=== PATIENT | female | born 1965 | race Two or more races ===

== ENCOUNTER 2024-11-04 18:58 | Emergency (ER) | payer MEDICAID, SELFPAY ==
[2024-11-04 19:00] VITALS: BMI 37.4
[2024-11-04 19:13] VITALS: BP 134/85; PULSE 73; RESP 20; TEMP 37; O2SAT 97
--- NOTE | 2024-11-04 19:20 | XR_ITS ---
Examination: Foot, right, 3 views Technique: AP, oblique, lateral views foot, 3 views Date and time of exam: November 04, 20245 hrs. Indications: Injury to the foot 7 days ago, foot pain. Findings: Moderate osteopenia Deformity of the distal fibula Soft tissue swelling about the ankle Impression: Recommend follow-up ankle films to exclude fracture of the distal fibula
--- NOTE | 2024-11-04 19:22 | PD.EDRME ---
Rapid Medical Screening Exam [facility] Arrival date/time: 11/04/24 18:58 59-year-old female with no known medical history presents to the emergency room with a chief complaint of pain and tenderness to her right toe x 7 days. Patient states she stubbed her toe and since then her toe has began to get more infected and discolored. Patient states she struggles with her blood sugar management and today it was at 180 this morning. I have greeted and performed a focused initial assessment of this patient. A comprehensive ED assessment and evaluation of the patient, analysis of all test results, and completion of the medical decision making process will be conducted by additional ED providers. Chief Complaint: General Adult/Misc Complain Time Seen by Provider: 11/04/24 19:20 Vital signs: Vital Signs Temperature 98.6 F 11/04/24 19:13 Pulse Rate 73 11/04/24 19:13 Respiratory Rate 20 11/04/24 19:13 Blood Pressure 134/85 H 11/04/24 19:13 Pulse Oximetry (%) 97 11/04/24 19:13 Oxygen Delivery Method Room Air 11/04/24 19:13 Vital signs reviewed by provider: Yes
[2024-11-04 19:52] LABS: Basophils # (Auto) 0.1 Thou/mm3 (0.0-0.2); Basophils % (Auto) 1 % (0-2.5); Eosinophils # (Auto) 0.4 Thou/mm3 (0.0-0.5); Eosinophils % (Auto) 4 % (0-10); Hematocrit 45.7 % (36.0-46.0); Hemoglobin 15.4 g/dL (12.0-16.0); Immature Granulocytes % (Auto) 1 % (0-0); Immature Granulocytes Auto 0.05 Thou/mm3 (0.00-0.00); Lymphocytes # (Auto) 3.3 Thou/mm3 (1.0-4.8); Lymphocytes % (Auto) 36 % (10-50); Mean Corpuscular HGB Conc 33.7 g/dl (31.0-37.0); Mean Corpuscular Hemoglobin 29.1 pg (25.0-35.0); Mean Corpuscular Volume 86 fL (80-100); Monocytes # (Auto) 0.8 Thou/mm3 (0.0-0.8); Monocytes % (Auto) 8 % (0-12); Neutrophils # (Auto) 4.6 Thou/mm3 (1.8-7.7); Neutrophils % (Auto) 50 % (37-80); Nucleated Red Blood Cell % 0 /100 WBC (0); Platelet Count 215 Thou/mm3 (140-440); RDW Standard Deviation 44.2 fL (36.4-46.3); Red Blood Count 5.29 Miln/mm3 (4.00-5.20); White Blood Count 9.2 Thou/mm3 (3.6-11.0)
[2024-11-04 20:18] LABS: Sed Rate (ESR) 44 mm/hr (0-30)
[2024-11-04 21:03] LABS: Alanine Aminotransferase 33 U/L (10-49); Albumin, Serum 4.2 gm/dL (3.4-4.8); Albumin/Globulin Ratio 1.1 (1.2-2.2); Alkaline Phosphatase 166 U/L (46-116); Anion Gap 8 (7-16); Aspartate Amino Transferase 29 U/L (0-34); BUN/Creatinine Ratio 12 Ratio (12-20); Bilirubin,Total 0.4 mg/dL (0.3-1.2); Blood Urea Nitrogen 13 mg/dL (9-23); Calcium 9.6 mg/dL (8.3-10.6); Calcium (Corrected) 9.6 mg/dL (8.5-10.1); Carbon Dioxide 27.9 mMol/L (20.0-31.0); Chloride 102 mMol/L (98-107); Creatinine (Component) 1.1 mg/dL (0.6-1.3); Estimated Creatinine Clearance 64.4 mL/min (>60); Glucose 228 mg/dL (74-106); Osmolality,Calculated 282 (275-295); Potassium 4.2 mMol/L (3.4-5.1); Sodium 138 mMol/L (136-145); Total Protein 8.2 gm/dL (5.7-8.2); eGFR 58 See Note
[2024-11-04 21:46] LABS: C-Reactive Protein 0.5 mg/dL (0.0-0.9)
--- NOTE | 2024-11-04 22:45 | EDNOTE_ITS ---
ED General RME/HPI General Chief complaint: General Adult/Misc Complain Stated complaint: HIGH BLOOD SUGAR/INJURY RIGHT TOE x 7 DAYS Time Seen by Provider: 11/04/24 19:20 Arrival date/time: 11/04/24 18:58 RME / HPI RME / HPI narrative: 59-year-old female patient with significant history of diabetes mellitus, came in for evaluation regarding right 4th toe injury. Onset of symptoms for the last 7 days, according to the patient patient right 4th toe injury with a bed. It was okay until few days ago when the patient noted discoloration, described as erythematous, and mildly swollen. Denies any drainage. Denies any other complaints. She also complained of blood sugar problem, this morning it was 180. Patient denies any fever. Denies any other complaints patient is ambulatory not limping. Related Data Home Medications ?Medication ?Instructions ?Recorded ?Confirmed chlorpheniramine maleate 4 mg 4 mg PO Q6H PRN Allergy Symptoms 04/19/19 12/18/22 tablet (Chlor-Trimeton) empagliflozin 25 mg tablet 25 mg PO QDAY 04/19/19 12/18/22 (Jardiance) levothyroxine 75 mcg tablet 75 mcg PO QAMAC 04/19/19 12/18/22 loratadine 10 mg tablet 20 mg PO QDAY 04/19/19 12/18/22 sitagliptin phosphate 50 1 tab PO BID 04/19/19 12/18/22 mg-metformin 1,000 mg tablet (Janumet) aspirin 81 mg chewable tablet 81 mg PO QDAY 12/18/22 12/18/22 pravastatin 10 mg tablet 10 mg PO QDAY 12/18/22 12/18/22 Previous Rx's ?Medication ?Instructions ?Recorded ibuprofen 800 mg tablet 600 mg (0.75 x 800 mg) PO TID #30 04/21/19 tabs acetaminophen 500 mg capsule 1,000 mg (2 x 500 mg) PO TID #30 04/29/24 caps sulfamethoxazole 800 1 tab PO BID #14 tabs 11/04/24 mg-trimethoprim 160 mg tablet (Bactrim DS) Allergies Allergy/AdvReac Type Severity Reaction Status Date / Time No Known Allergies Allergy Verified 11/04/24 19:03 Review of Systems Review of Systems Narrative Review of Systems: Review of system reviewed and within normal limits except mentioned in HPI ED Exam Narrative Physical exam: VITAL SIGNS: Reviewed. GENERAL APPEARANCE: Alert and interactive, follows commands, no acute distress, HEAD AND FACE: Non-traumatic. ENT: PERRL, pink conjunctivitis, eyelid no trauma, Mucous membrane moist. NECK: Supple, nontender, no nuchal rigidity. CHEST: No tenderness, no crepitus, no paradoxical movement, no retractions. LUNGS: Clear, well ventilated, symmetric, no rales, no wheezing, no ronchi, no stridor, good breath sounds bilaterally. HEART: Regular rate, regular rhythm, no murmur, no gallops. ABDOMEN: Soft, positive bowel sounds, nondistended, no guarding, nontender, no rebound, no masses, RECTAL: Deferred. GENITAL: Deferred. NEUROLOGICAL: Gross motor function intact sensory function intact, Appropriate for age. MUSCULOSKELETAL: low back nontender, full range of motion. EXTREMITIES: Right 4th toe redness, swelling, erythematous no drainage noted nonfluctuant, full range of motion. SKIN: Color pink, dry, no rash, no lacerations, no abrasions, no contusions. LYMPHATICS: Deferred. Course Quality Measures none Orders Category Date Time Status XR foot comp RT min 3V Stat Exams 11/04/24 19:45 Completed CBC Stat Lab 11/04/24 19:28 Completed CMP [Comprehensive Metabolic Panel] Stat Lab 11/04/24 19:28 Completed CRP [C-Reactive Protein] Stat Lab 11/04/24 19:28 Completed ESR [Sed Rate (ESR)] Stat Lab 11/04/24 19:28 Completed Trimethoprim/Sulfa 160/800 Ds [Bactrim Ds] Med 11/04/24 22:43 Discontinued 1 tab PO X1 ONE Vital Signs Vital signs: Vital Signs Temperature 98.6 F 11/04/24 19:13 Pulse Rate 73 11/04/24 19:13 Respiratory Rate 20 11/04/24 19:13 Blood Pressure 134/85 H 11/04/24 19:13 Pulse Oximetry (%) 97 11/04/24 19:13 Oxygen Delivery Method Room Air 11/04/24 19:13 [facility] Patient data External records reviewed:: None Clinical information provided by:: patient Social determinants that could affect healthcare access:: none Patient has the following chronic illnesses:: Diabetes mellitus How is presenting disease/condition affected by chronic disease/condition?: e xacerbated by Evaluation data The following diagnostics were reviewed and interpreted by me:: lab results and radiology exam(s) Lab and/or radiology exams considered but not ordered:: None Interpretation Summary: Patient's workup today all came back unremarkable, no leukocytosis, blood sugar was noted to be 228, with no sign of diabetic ketoacidosis. X-ray of the foot also came back unremarkable. Medications Medications considered but not ordered:: None Medication administrations:: Medication Administration History Discontinued Medications Trimethoprim/Sulfamethoxazole (Trimethoprim/Sulfa 160/800 Ds Tablet) 1 tab PO X1 ONE Stop: 11/04/24 22:44 Bactrim Consultations Consultation(s) initiated? (list below): No Diagnosis Differential Diagnosis ED Complaint MDM: Toe cellulitis, diabetic toe infection, diabetic toe gangrene Most likely diagnosis given after review of the tests above:: toe cellulitis History of diabetes mellitus Admission Indicated Admission indicated?: not indicated Explain why admission is indicated or not indicated:: Stable Admission Request Was there a request for admission?: No Disposition Plan Disposition Plan: Discharge Discharge Attestation Discharge Attestation: The patient and all family members were given an opportunity to ask questions and understood the discharge instructions. Discharge instructions specifically effects, indications for sooner follow up or return to the emergency department, and the expected course of current diagnosis. Patient condition: Stable Medical Decision Making MDM Narrative MDM Narrative: 59-year-old female patient with significant history of diabetes mellitus, came in for evaluation regarding right 4th toe injury. Onset of symptoms for the last 7 days, according to the patient patient right 4th toe injury with a bed. It was okay until few days ago when the patient noted discoloration, described as erythematous, and mildly swollen. Denies any drainage. Denies any other complaints. She also complained of blood sugar problem, this morning it was 180. Patient denies any fever. Denies any other complaints patient is ambulatory not limping. Patient's workup today all came back unremarkable, no leukocytosis, blood sugar was noted to be 228, with no sign of diabetic ketoacidosis. X-ray of the foot also came back unremarkable. Patient received Bactrim in the emergency room. Differential Diagnosis Differential Diagnosis: Toe cellulitis, diabetic toe infection, diabetic toe gangrene Lab Data 11/04/24 19:28 11/04/24 19:28 Labs: Lab Results 11/04/24 Range/Units 19:28 WBC 9.2 (3.6-11.0) Thou/mm3 RBC 5.29 H (4.00-5.20) Miln/mm3 Hgb 15.4 (12.0-16.0) g/dL Hct 45.7 (36.0-46.0) % MCV 86 (80-100) fL MCH 29.1 (25.0-35.0) pg MCHC 33.7 (31.0-37.0) g/dl RDW Std Deviation 44.2 (36.4-46.3) fL Plt Count 215 (140-440) Thou/mm3 Neut % (Auto) 50 (37-80) % Lymph % (Auto) 36 (10-50) % [place] % (Auto) 8 (0-12) % Eos % (Auto) 4 (0-10) % Baso % (Auto) 1 (0-2.5) % Neut # (Auto) 4.6 (1.8-7.7) Thou/mm3 Lymph # (Auto) 3.3 (1.0-4.8) Thou/mm3 [place] # (Auto) 0.8 (0.0-0.8) Thou/mm3 Eos # (Auto) 0.4 (0.0-0.5) Thou/mm3 Baso # (Auto) 0.1 (0.0-0.2) Thou/mm3 Immature Gran # (Auto) 0.05 H (0.00-0.00) Thou/mm3 Absolute Nucleated RBC 0.00 (0.00-0.00) Thou/mm3 Immature Gran % 1 H (0-0) % Nucleated RBC % 0 (0) /100 WBC ESR 44 H (0-30) mm/hr Sodium 138 (136-145) mMol/L Potassium 4.2 (3.4-5.1) mMol/L Chloride 102 (98-107) mMol/L Carbon Dioxide 27.9 (20.0-31.0) mMol/L Anion Gap 8 (7-16) BUN 13 (9-23) mg/dL Creatinine 1.1 (0.6-1.3) mg/dL Estim Creat Clear Calc 64.4 (>60) mL/min eGFR 58 L (60 - ) See Note BUN/Creatinine Ratio 12 (12-20) Ratio Glucose 228 H (74-106) mg/dL Calculated Osmolality 282 (275-295) Calcium 9.6 (8.3-10.6) mg/dL Corrected Calcium 9.6 (8.5-10.1) mg/dL Total Bilirubin 0.4 (0.3-1.2) mg/dL AST 29 (0-34) U/L ALT 33 (10-49) U/L Alkaline Phosphatase 166 H (46-116) U/L C-Reactive Prot, Quant 0.5 (0.0-0.9) mg/dL Total Protein 8.2 (5.7-8.2) gm/dL Albumin 4.2 (3.4-4.8) gm/dL Globulin 4.0 H (2.3-3.5) gm/dL Albumin/Globulin Ratio 1.1 L (1.2-2.2) Discharge Plan Plan Patient Disposition: HOME (Self Care) Disposition Comment: Stable Prescriptions/Referrals Prescriptions/Med Rec: New sulfamethoxazole-trimethoprim [Bactrim DS] 800-160 mg tablet 1 tab PO BID Qty: 14 0RF No Action chlorpheniramine maleate [Chlor-Trimeton] 4 mg Tablet 4 mg PO Q6H PRN (Reason: Allergy Symptoms) levothyroxine 75 mcg Tablet 75 mcg PO QAMAC loratadine 10 mg Tablet 20 mg PO QDAY Janumet 50-1,000 mg Tablet 1 tab PO BID Jardiance 25 mg Tablet 25 mg PO QDAY ibuprofen 800 mg tablet 600 mg PO TID Qty: 30 0RF pravastatin 10 mg tablet 10 mg PO QDAY aspirin 81 mg tablet,chewable 81 mg PO QDAY acetaminophen 500 mg capsule 1,000 mg PO TID Qty: 30 0RF Referrals: Rylan Sierra PA-C [Primary Care Provider] - In 1 week Problem List Clinical Impression: Cellulitis of fourth toe, Diabetes mellitus Patient/Caregiver Discharge Instructions Discharge Activity: activity as tolerated Education Materials: ED Diabetic Foot Care, ED Diet: Diabetes Additional Instructions: Thank you for the opportunity for serving you today. You are stable for discharged . You are advised to: Follow-up with your PCP in 1 to 2 days Return to ED for worsening of symptoms Increase oral fluids Take medication as prescribed MD Stephanie Print Language: Swedish Stand Alone Forms: Mariana Award Info., Patient Portal Info Letter PA/MANAGER OF ENTERPRISE Supervising Physician PA/MANAGER OF ENTERPRISE Supervising Physician: MD Stephanie
[2024-11-04] MEDS: TRIMETHOPRIM/SULFA 160/800 DS TABLET 1 TAB PO (23:00)
== END 2024-11-04 23:03 | disposition home or self-care (01) ==
PROVIDERS: Nurse Practitioner Family; Emergency Provider Emergency Medicine; PCP Physician Assistant
DX: L03.031 Cellulitis of right toe (principal); E11.9 Type 2 diabetes mellitus without complications
CPT/HCPCS: 36415; 73630; 80053; 85025; 85652; 86140; 99283; A9270

== ENCOUNTER 2025-01-13 00:22 | Emergency (ER) | payer MEDICAID, SELFPAY ==
[2025-01-13 00:23] VITALS: BMI 38.4
[2025-01-13 00:45] VITALS: BP 133/87; PULSE 89; RESP 18; TEMP 37.5; O2SAT 95
--- NOTE | 2025-01-13 01:18 | XR_ITS ---
Examination: PA and lateral chest 2 views TECHNIQUE: Upright PA and lateral chest 2 views Examination time: January 13, 2025 at 0128 hours Comparison July 24, 2021 INDICATIONS: Chest pain today FINDINGS: Minor prominence left ventricle Moderate vascular congestion No lobar pneumonia The osseous structures are intact IMPRESSION: Moderate vascular congestion
--- NOTE | 2025-01-13 01:18 | EKG_ITS ---
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
--- NOTE | 2025-01-13 01:19 | EDRME_ITS ---
Rapid Medical Screening Exam [facility] Arrival date/time: 01/13/25 00:22 59F with history of DM and hypothyroidism presents to ED with 4 days of fevers/chills, reduced appetite, and N/V. Patient denies URI symptoms. Chief Complaint: Fever Vital signs: Vital Signs Temperature 99.5 F 01/13/25 00:45 Pulse Rate 89 01/13/25 00:45 Respiratory Rate 18 01/13/25 00:45 Blood Pressure 133/87 H 01/13/25 00:45 Pulse Oximetry (%) 95 01/13/25 00:45 Oxygen Delivery Method Room Air 01/13/25 00:45
[2025-01-13 02:06] LABS: Collection Type, Urine Clean Catch
[2025-01-13 02:08] LABS: Lactate (Lactic Acid) 1.1 mMol/L (0.4-2.0)
[2025-01-13 02:11] LABS: Basophils # (Auto) 0.1 Thou/mm3 (0.0-0.2); Basophils % (Auto) 1 % (0-2.5); Eosinophils # (Auto) 0.3 Thou/mm3 (0.0-0.5); Eosinophils % (Auto) 2 % (0-10); Hemoglobin 15.4 g/dL (12.0-16.0); Immature Granulocytes % (Auto) 0 % (0-0); Immature Granulocytes Auto 0.05 Thou/mm3 (0.00-0.00); Lymphocytes # (Auto) 2.4 Thou/mm3 (1.0-4.8); Lymphocytes % (Auto) 17 % (10-50); Mean Corpuscular HGB Conc 34.2 g/dl (31.0-37.0); Mean Corpuscular Volume 88 fL (80-100); Monocytes # (Auto) 1.3 Thou/mm3 (0.0-0.8); Monocytes % (Auto) 9 % (0-12); Neutrophils # (Auto) 9.7 Thou/mm3 (1.8-7.7); Neutrophils % (Auto) 70 % (37-80); Nucleated Red Blood Cell % 0 /100 WBC (0); Platelet Count 186 Thou/mm3 (140-440); RDW Standard Deviation 43.9 fL (36.4-46.3); Red Blood Count 5.13 Miln/mm3 (4.00-5.20); White Blood Count 13.8 Thou/mm3 (3.6-11.0)
[2025-01-13 02:16] LABS: Bilirubin,Urine Negative (Negative); Blood,Urine Negative (Negative); Clarity,Urine Turbid (Clear/Hazy); Color,Urine Yellow (Lt Yel-Yel); Culture Indicated,Urine Not Indicated; Glucose, Urine Trace (Negative); Ketones,Urine Trace (Negative); Leukocyte Esterase,Urine Positive (Negative); Nitrite,Urine Negative (Negative); Protein,Urine 1+ (Neg - Trace); RBC,Urine 2 /hpf (0-3); Specific Gravity,Urine 1.041 (1.001-1.035); Squamous Epithelial Cell,Urine 19 /hpf (0-5); WBC,Urine 4 /hpf (0-5)
--- NOTE | 2025-01-13 02:25 | PD.EDFEVER ---
ED Fever RME/HPI General Chief Complaint: Fever Stated Complaint: FEVER Arrival date/time: 01/13/25 00:22 RME / HPI RME / HPI Narrative: 01/13/25 00:22 59F with history of DM and hypothyroidism presents to ED with 4 days of fevers/chills, reduced appetite, and N/V. Patient denies URI symptoms. --------- Dr. Meza's Main ED Evaluation: Related Data Home Medications ?Medication ?Instructions ?Recorded ?Confirmed chlorpheniramine maleate 4 mg 4 mg PO Q6H PRN Allergy Symptoms 04/19/19 12/18/22 tablet (Chlor-Trimeton) empagliflozin 25 mg tablet 25 mg PO QDAY 04/19/19 12/18/22 (Jardiance) levothyroxine 75 mcg tablet 75 mcg PO QAMAC 04/19/19 12/18/22 loratadine 10 mg tablet 20 mg PO QDAY 04/19/19 12/18/22 sitagliptin phosphate 50 1 tab PO BID 04/19/19 12/18/22 mg-metformin 1,000 mg tablet (Janumet) aspirin 81 mg chewable tablet 81 mg PO QDAY 12/18/22 12/18/22 pravastatin 10 mg tablet 10 mg PO QDAY 12/18/22 12/18/22 Previous Rx's ?Medication ?Instructions ?Recorded ibuprofen 800 mg tablet 600 mg (0.75 x 800 mg) PO TID #30 04/21/19 tabs acetaminophen 500 mg capsule 1,000 mg (2 x 500 mg) PO TID #30 04/29/24 caps sulfamethoxazole 800 1 tab PO BID #14 tabs 11/04/24 mg-trimethoprim 160 mg tablet (Bactrim DS) Allergies Allergy/AdvReac Type Severity Reaction Status Date / Time No Known Allergies Allergy Verified 11/04/24 19:03 Review of Systems Review of Systems Systems Reviewed: All systems reviewed, normal except as documented Past Medical History Past Medical History NEUROLOGIC: Negative Neurological Disorders or Seizures CARDIAC: Positive Cardiac Disorders and Hypercholesterolemia; Negative Congestive Heart Failure RESPIRATORY: Negative Chronic Obstructive Pulmonary Disease (COPD) or Asthma GASTROINTESTINAL: Positive Gastrointestinal Disorders and Gall Bladder Disease GENITOURINARY: Negative Genitourinary Disorders or Renal Disease REPRODUCTIVE: Positive Previous Pregnancies MUSCULOSKELETAL: Negative Musculoskeletal Disorders ENDOCRINE: Positive Endocrine Disorders, Diabetes Mellitus Type 2 and Hyperthyroidism; Negative Diabetes Mellitus Type 1 HEMATOLOGIC: Negative Blood Disorders or Sickle Cell Disease PSYCHO/SOCIAL: Positive Anxiety OTHER HISTORY: Negative Autoimmune Disease, Blood Transfusions, Blood Transfusion Reaction or Anesthesia Reactions Surgical History SURGICAL: Positive Tubal Ligation and Section Social History SMOKING STATUS: Never smoker Course Course Course Narrative: CXR is ordered for determining the etiology of fever. Quality Measures none Orders Category Date Time Status Bedside COVID-19 Antigen Test NOW Care 01/13/25 01:19 Active Bedside Influenza A&B Antigen Test NOW Care 01/13/25 01:19 Completed EKG (ED ONLY) *Do not use* NOW Care 01/13/25 01:18 Completed EKG (ED Only) Stat Exams 01/13/25 01:18 Draft XR chest 2V Stat Exams 01/13/25 01:18 Taken CBC Stat Lab 01/13/25 01:46 Received Comprehensive Metabolic Panel Stat Lab 01/13/25 01:46 Received Lactate (Lactic Acid) Stat Lab 01/13/25 01:46 Completed Lipase Stat Lab 01/13/25 01:46 Received Procalcitonin Stat Lab 01/13/25 01:46 Received Troponin I Stat Lab 01/13/25 01:46 Received Urinalysis, C/S if Indicated Stat Lab 01/13/25 01:46 Received Vital Signs Vital signs: Vital Signs Temperature 99.5 F 01/13/25 00:45 Pulse Rate 89 01/13/25 00:45 Respiratory Rate 18 01/13/25 00:45 Blood Pressure 133/87 H 01/13/25 00:45 Pulse Oximetry (%) 95 01/13/25 00:45 Oxygen Delivery Method Room Air 01/13/25 00:45 Fever Patient data External records reviewed:: [facility] previous records (Per chart review, patient was seen here on 11/04/24 for cellulitis of the fourth toe.) Clinical information provided by:: patient and family Social determinants that could affect healthcare access:: none Patient has the following chronic illnesses:: DM, HLD Discharge Plan Prescriptions/Referrals Prescriptions/Med Rec: No Action chlorpheniramine maleate [Chlor-Trimeton] 4 mg Tablet 4 mg PO Q6H PRN (Reason: Allergy Symptoms) levothyroxine 75 mcg Tablet 75 mcg PO QAMAC loratadine 10 mg Tablet 20 mg PO QDAY Janumet 50-1,000 mg Tablet 1 tab PO BID Jardiance 25 mg Tablet 25 mg PO QDAY ibuprofen 800 mg tablet 600 mg PO TID Qty: 30 0RF sulfamethoxazole-trimethoprim [Bactrim DS] 800-160 mg tablet 1 tab PO BID Qty: 14 0RF pravastatin 10 mg tablet 10 mg PO QDAY aspirin 81 mg tablet,chewable 81 mg PO QDAY acetaminophen 500 mg capsule 1,000 mg PO TID Qty: 30 0RF Patient/Caregiver Discharge Instructions Print Language: Telugu
[2025-01-13 02:39] LABS: Alanine Aminotransferase 27 U/L (10-49); Albumin, Serum 4.1 gm/dL (3.4-4.8); Alkaline Phosphatase 134 U/L (46-116); Anion Gap 8 (7-16); Aspartate Amino Transferase 24 U/L (0-34); BUN/Creatinine Ratio 14 Ratio (12-20); Bilirubin,Total 0.6 mg/dL (0.3-1.2); Blood Urea Nitrogen 14 mg/dL (9-23); Calcium 9.8 mg/dL (8.3-10.6); Calcium (Corrected) 9.8 mg/dL (8.5-10.1); Chloride 102 mMol/L (98-107); Estimated Creatinine Clearance 69.4 mL/min (>60); Glucose 171 mg/dL (74-106); Lipase 28 U/L (12-53); Osmolality,Calculated 280 (275-295); Potassium 3.8 mMol/L (3.4-5.1); Procalcitonin 0.09 ng/ml (0.0-0.49); Sodium 138 mMol/L (136-145); Total Protein 8.1 gm/dL (5.7-8.2); Troponin I < 0.002 ng/mL (0.0-0.045); eGFR > 60 See Note
[2025-01-13 03:40] VITALS: BP 121/61; PULSE 74; RESP 18; O2SAT 95
[2025-01-13] MEDS: SODIUM CHLORIDE 0.9% 1000 ML 1,000 ML 999 ML IV (05:24)
--- NOTE | 2025-01-13 08:38 | PD.EDFEVER ---
ED Fever RME/HPI General Chief Complaint: Fever Stated Complaint: FEVER Time Seen by Provider: 01/13/25 03:37 Arrival date/time: 01/13/25 00:22 RME / HPI RME / HPI Narrative: 01/13/25 00:22 59F with history of DM and hypothyroidism presents to ED with 4 days of fevers/chills, reduced appetite, and N/V. Patient denies URI symptoms. --------- DR. QUIJANO MAIN ED EVALUATION 59 year old female with history of diabetes and hypothyroidism presents to the ED for complaint of fevers, chills, nausea, and cough beginning 3 days ago. Patient additionally reports her blood sugar levels yesterday were high, the highest reading 426. However, improved after administering her insulin. Denies any known sick contacts. No other complaints reported. Denies chest pain, shortness of breath. Denies vomiting, diarrhea, constipation. Denies dysuria, urinary frequency and urgency. Related Data Home Medications ?Medication ?Instructions ?Recorded ?Confirmed chlorpheniramine maleate 4 mg 4 mg PO Q6H PRN Allergy Symptoms 04/19/19 12/18/22 tablet (Chlor-Trimeton) empagliflozin 25 mg tablet 25 mg PO QDAY 04/19/19 12/18/22 (Jardiance) levothyroxine 75 mcg tablet 75 mcg PO QAMAC 04/19/19 12/18/22 loratadine 10 mg tablet 20 mg PO QDAY 04/19/19 12/18/22 sitagliptin phosphate 50 1 tab PO BID 04/19/19 12/18/22 mg-metformin 1,000 mg tablet (Janumet) aspirin 81 mg chewable tablet 81 mg PO QDAY 12/18/22 12/18/22 pravastatin 10 mg tablet 10 mg PO QDAY 12/18/22 12/18/22 Previous Rx's ?Medication ?Instructions ?Recorded ibuprofen 800 mg tablet 600 mg (0.75 x 800 mg) PO TID #30 04/21/19 tabs acetaminophen 500 mg capsule 1,000 mg (2 x 500 mg) PO TID #30 04/29/24 caps sulfamethoxazole 800 1 tab PO BID #14 tabs 11/04/24 mg-trimethoprim 160 mg tablet (Bactrim DS) Allergies Allergy/AdvReac Type Severity Reaction Status Date / Time No Known Allergies Allergy Verified 11/04/24 19:03 Review of Systems Review of Systems Narrative Review of Systems: GEN: + fever, + chills, no weight loss EYES: No discharge, no visual changes, no pain HEENT: No ear pain, no congestion, no sore throat PULM: No shortness of breath, +cough, no congestion CV: No chest pain, no dyspnea on exertion, no palpitations GI: +nausea, no vomiting, no diarrhea, no pain, no constipation : No frequency, no urgency, no dysuria MUSC/SKEL: No joint pain, no back pain SKIN: No rash NEURO: No weakness, no headache Past Medical History Past Medical History CARDIAC: Positive Cardiac Disorders and Hypercholesterolemia GASTROINTESTINAL: Positive Gastrointestinal Disorders and Gall Bladder Disease REPRODUCTIVE: Positive Previous Pregnancies ENDOCRINE: Positive Endocrine Disorders, Diabetes Mellitus Type 2 and Hyperthyroidism PSYCHO/SOCIAL: Positive Anxiety Surgical History SURGICAL: Positive Tubal Ligation and Section Social History SMOKING STATUS: Former smoker Physical Exam Narrative Physical exam: GENERAL APPEARANCE: alert and oriented x 4, well-developed, well-nourished, no acute distress HEENT: Normocephalic, atraumatic; pupils equal, round, reactive to light; EOMI; mucous membranes pink, moist; oropharynx clear NECK: Supple LUNGS: CTABL; no wheezes, no rales, no rhonchi HEART: Regular rate, regular rhythm; normal S1, S2; no murmurs ABDOMEN: non distended; normal BS; soft, no tenderness, no guarding, no rebound; no masses, no organomegaly, no hernia BACK: no CVA tenderness EXTREMITIES: atraumatic; no edema NEUROLOGIC: awake; alert and oriented x4; cranial nerves II-XII grossly intact; no focal sensory or motor deficits PSYCHIATRIC: appropriate mood and affect SKIN: warm, dry, normal color; no rashes Course Course Course Narrative: CXR is ordered for determining the etiology of fever. Quality Measures none Orders Category Date Time Status Bedside COVID-19 Antigen Test NOW Care 01/13/25 01:19 Active Bedside Influenza A&B Antigen Test NOW Care 01/13/25 01:19 Completed EKG (ED ONLY) *Do not use* NOW Care 01/13/25 01:18 Completed EKG (ED Only) Stat Exams 01/13/25 01:18 Draft XR chest 2V Stat Exams 01/13/25 01:18 Completed CBC Stat Lab 03/28/25 01:46 Completed Comprehensive Metabolic Panel Stat Lab 01/13/25 01:46 Completed Lactate (Lactic Acid) Stat Lab 01/13/25 01:46 Completed Lipase Stat Lab 01/13/25 01:46 Completed Procalcitonin Stat Lab 01/13/25 01:46 Completed Troponin I Stat Lab 01/13/25 01:46 Completed Urinalysis, C/S if Indicated Stat Lab 01/13/25 01:46 Completed Sodium Chloride 0.9% 1000 ml [Ns] 1,000 ml Med 01/13/25 04:41 Discontinued IV 999 mls/hr Reevaluation(s) Reevaluation #1: Patient remains clinically stable throughout the emergency department visit. We reviewed all the results, analysis, and treatment plans. Patient is amenable to discharge. Strict return precautions were outlined. Patient was discharged in stable condition. Time: 08:45 Vital Signs Vital signs: Vital Signs Temperature 99.5 F 01/13/25 00:45 Pulse Rate 89 01/13/25 00:45 Respiratory Rate 18 01/13/25 00:45 Blood Pressure 133/87 H 01/13/25 00:45 Pulse Oximetry (%) 95 01/13/25 00:45 Oxygen Delivery Method Room Air 01/13/25 00:45 Pulse ox is 95% on room air which is adequate. Fever MDM Narrative MDM Narrative:: Kristin Calix am scribing for and in the presence of Dr. Quijano. Patient data External records reviewed:: [facility] previous records (I reviewed ED visit on 11/04/2024 ) Clinical information provided by:: patient Social determinants that could affect healthcare access:: none Patient has the following chronic illnesses:: DM, hypothyroidism How is presenting disease/condition affected by chronic disease/condition?: exacerbated by Evaluation data The following diagnostics were reviewed and interpreted by me:: lab results, radiology exam(s) and EKG tracing(s) (Sinus rhythm, rate 85, no acute ischemic changes, no STEMI ) Lab and/or radiology exams considered but not ordered:: None Interpretation Summary: Ordering Physician: Umair Cooney PA-C Date of Service: 01/13/25 Procedure(s): XR chest 2V Accession Number(s): [id number] cc: Gama Hook MD; Umair Cooney PA-C~ Examination: PA and lateral chest 2 views TECHNIQUE: Upright PA and lateral chest 2 views Examination time: January 13, 2025 at 0128 hours Comparison July 24, 2021 INDICATIONS: Chest pain today FINDINGS: Minor prominence left ventricle Moderate vascular congestion No lobar pneumonia The osseous structures are intact IMPRESSION: Moderate vascular congestion Dictated By: Gama Hook MD Signed By: <Electronically signed by Gama Hook MD in OV> 01/13/25 0724 Medications / Prescriptions Medications or Prescriptions considered but not ordered:: None Medication administrations:: Medication Administration History Discontinued Medications Sodium Chloride (Ns) 1,000 mls @ 999 mls/hr IV .Q1H1M ONE Stop: 01/13/25 05:41 Last Admin: 01/13/25 05:24 Dose: 999 mls/hr Documented By: SHIRLEY See above Consultations Consultation(s) initiated? (list below): No Diagnosis Fever Differential Diagnosis: fever of unknown origin, gastroenteritis, community acquired pneumonia, viral infection, sepsis and influenza Most likely diagnosis given after review of the tests above:: Fever Admission Indicated Admission indicated?: not indicated Explain why admission is indicated or not indicated:: Does not meet admission criteria Admission Request Was there a request for admission?: No Disposition Plan Disposition Plan: Discharge Discharge Attestation Discharge Attestation: The patient and all family members were given an opportunity to ask questions and understood the discharge instructions. Discharge instructions specifically effects, indications for sooner follow up or return to the emergency department, and the expected course of current diagnosis. Patient condition: Stable Discharge Plan Plan Patient Disposition: HOME (Self Care) Prescriptions/Referrals Prescriptions/Med Rec: No Action chlorpheniramine maleate [Chlor-Trimeton] 4 mg Tablet 4 mg PO Q6H PRN (Reason: Allergy Symptoms) levothyroxine 75 mcg Tablet 75 mcg PO QAMAC loratadine 10 mg Tablet 20 mg PO QDAY Janumet 50-1,000 mg Tablet 1 tab PO BID Jardiance 25 mg Tablet 25 mg PO QDAY ibuprofen 800 mg tablet 600 mg PO TID Qty: 30 0RF sulfamethoxazole-trimethoprim [Bactrim DS] 800-160 mg tablet 1 tab PO BID Qty: 14 0RF pravastatin 10 mg tablet 10 mg PO QDAY aspirin 81 mg tablet,chewable 81 mg PO QDAY acetaminophen 500 mg capsule 1,000 mg PO TID Qty: 30 0RF Referrals: Rylan Sierra PA-C [Primary Care Provider] - In 1 week Problem List Clinical Impression: Fever Patient/Caregiver Discharge Instructions Education Materials: ED FUO Adult Print Language: Lithuanian Stand Alone Forms: Mariana Award Info., Patient Portal Info Letter
== END 2025-01-13 09:02 | disposition home or self-care (01) ==
PROVIDERS: Physician Assistant; Emergency Provider Emergency Medicine; PCP Physician Assistant
DX: R50.9 Fever, unspecified (principal); R09.89 Other specified symptoms and signs involving the circulatory and respiratory systems; R94.31 Abnormal electrocardiogram [ECG] [EKG]
CPT/HCPCS: 36415; 71046; 80053; 81001; 83605; 83690; 84145; 84484; 85025; 87400; 87811; 93005; 99284; J7030

== ENCOUNTER 2025-06-04 02:55 | Emergency (ER) | payer MEDICAID, SELFPAY ==
[2025-06-04 02:56] VITALS: BMI 37.0
[2025-06-04 03:15] VITALS: BP 154/86; PULSE 61; RESP 19; TEMP 36.6; O2SAT 97
--- NOTE | 2025-06-04 03:25 | XR_ITS ---
Examination: Lumbar spine 3 views TECHNIQUE: AP lateral coned lateral lower lumbar spine 3 views Date and time: June 04, 2025 0423 hours INDICATIONS: Lower back pain beginning 4 days ago. FINDINGS: Adequate alignment lumbar vertebral bodies. No lumbar fracture or significant lumbar disc narrowing. Intact pedicles. IMPRESSION: No lumbar fracture or significant lumbar disc narrowing.
[2025-06-04] MEDS: KETOROLAC INJ 60 MG/2 ML VIAL 30 MG IM (04:18)
[2025-06-04] MEDS: HYDROcodone/APAP 5/325 TABLET 1 TAB PO (04:18)
--- NOTE | 2025-06-04 04:42 | PD.EDBACK ---
ED Back Injury Pain RME/HPI General Chief Complaint: Back Pain/Injury Stated Complaint: low back pain x 4 days Time Seen by Provider: 06/04/25 03:24 Source: patient Arrival date/time: 06/04/25 02:55 This is a case of 59-year-old female who came in in the emergency room due to lower back pain on and off for 4 days due to persistence of the symptoms this patient decided to sought consult here in the emergency room denies any numbness weakness tingling sensation or incontinence to urine or stool patient states that she has on and off lower back pain for 1 year but no injury no trauma noted patient states that she only took [id number] pain medication which relieved the pain due to persistence of the symptoms this patient decided to sought consult here in the emergency room Limitations: no limitations Related Data Home Medications ?Medication ?Instructions ?Recorded ?Confirmed chlorpheniramine maleate 4 mg 4 mg PO Q6H PRN Allergy Symptoms 04/19/19 12/18/22 tablet (Chlor-Trimeton) empagliflozin 25 mg tablet 25 mg PO QDAY 04/19/19 12/18/22 (Jardiance) levothyroxine 75 mcg tablet 75 mcg PO QAMAC 04/19/19 12/18/22 loratadine 10 mg tablet 20 mg PO QDAY 04/19/19 12/18/22 sitagliptin phosphate 50 1 tab PO BID 04/19/19 12/18/22 mg-metformin 1,000 mg tablet (Janumet) aspirin 81 mg chewable tablet 81 mg PO QDAY 12/18/22 12/18/22 pravastatin 10 mg tablet 10 mg PO QDAY 12/18/22 12/18/22 Previous Rx's ?Medication ?Instructions ?Recorded ibuprofen 800 mg tablet 600 mg (0.75 x 800 mg) PO TID #30 04/21/19 tabs acetaminophen 500 mg capsule 1,000 mg (2 x 500 mg) PO TID #30 04/29/24 caps sulfamethoxazole 800 1 tab PO BID #14 tabs 11/04/24 mg-trimethoprim 160 mg tablet (Bactrim DS) benzonatate 200 mg capsule 200 mg PO TID PRN cough #14 caps 01/13/25 baclofen 10 mg tablet 10 mg PO BID PRN muscle spasm #10 06/04/25 tabs hydrocodone 5 mg-acetaminophen 325 1 tab PO Q6H PRN pain #10 tabs 06/04/25 mg tablet Allergies Allergy/AdvReac Type Severity Reaction Status Date / Time No Known Allergies Allergy Verified 11/04/24 19:03 Review of Systems Review of Systems Systems Reviewed: All systems reviewed, normal except as documented Constitutional Constitutional: Reports system reviewed and no additional complaints, except as documented, Reports as per HPI, Denies chills and Denies fever(s) ENT Ears, Nose, Mouth, and Throat: Denies neck pain Cardiovascular Cardiovascular: Reports system reviewed and no additional complaints, except as documented and Reports as per HPI Respiratory Respiratory: Reports system reviewed and no additional complaints, except as documented and Reports as per HPI Gastrointestinal Gastrointestinal: Reports system reviewed and no additional complaints, except as documented, Reports as per HPI, Denies abdominal pain, Denies nausea and Denies vomiting Genitourinary Genitourinary: Reports system reviewed and no additional complaints, except as documented and Reports as per HPI Musculoskeletal Musculoskeletal: Reports system reviewed and no additional complaints, except as documented, Reports as per HPI, Reports back pain, Denies neck pain, Denies numbness, Denies radiating pain into limb, Denies stiffness and Denies tingling Integumentary/Breasts Skin/Breast: Reports system reviewed and no additional complaints, except as documented and Reports as per HPI Neurologic Neurologic: Reports system reviewed and no additional complaints, except as documented, Reports as per HPI, Denies numbness and Denies tingling Past Medical History Past Medical History NEUROLOGIC: Negative Neurological Disorders or Seizures CARDIAC: Positive Cardiac Disorders and Hypercholesterolemia; Negative Congestive Heart Failure RESPIRATORY: Negative Chronic Obstructive Pulmonary Disease (COPD) or Asthma GASTROINTESTINAL: Positive Gastrointestinal Disorders and Gall Bladder Disease GENITOURINARY: Negative Genitourinary Disorders or Renal Disease REPRODUCTIVE: Positive Previous Pregnancies MUSCULOSKELETAL: Negative Musculoskeletal Disorders ENDOCRINE: Positive Endocrine Disorders, Diabetes Mellitus Type 2 and Hyperthyroidism; Negative Diabetes Mellitus Type 1 HEMATOLOGIC: Negative Blood Disorders or Sickle Cell Disease PSYCHO/SOCIAL: Positive Anxiety OTHER HISTORY: Negative Autoimmune Disease, Blood Transfusions, Blood Transfusion Reaction or Anesthesia Reactions Surgical History SURGICAL: Positive Tubal Ligation and Section Social History SMOKING STATUS: Current some day smoker ED Exam General Limitations: Present no limitations General appearance: Present alert, in no apparent distress and other (Patient is awake alert oriented not in distress not toxic looking well-hydrated well-nourished) Head Head exam: Present atraumatic, normocephalic and normal inspection Eye Eye exam: Present normal appearance, PERRL and EOMI ENT ENT exam: Present normal exam, normal oropharynx and mucous membranes moist Neck Neck exam: Present normal inspection, full ROM and trachea midline; Absent tenderness, meningismus or lymphadenopathy Chest Chest inspection: Present normal inspection and symmetric chest wall rise; Absent tenderness Respiratory Respiratory exam: Present normal lung sounds bilaterally; Absent respiratory distress, wheezes, stridor, accessory muscle use or prolonged expiratory phase Cardiovascular Cardiovascular exam: Present regular rate, normal rhythm and normal heart sounds; Absent bradycardia, tachycardia, irregular rhythm, systolic murmur or diastolic murmur Abdominal Exam Abdominal exam: Present soft and normal bowel sounds; Absent distention, tenderness, guarding, rebound, rigidity, diminished bowel sounds, hyperactive bowel sounds, hypoactive bowel sounds or organomegaly Extremities Exam Extremities exam: Present normal inspection and full ROM Back Exam Back exam: Present normal inspection, full ROM, tenderness (Mild tenderness on the L1 L5 no CVA tenderness no crepitation no deformity) and muscle spasm; Absent CVA tenderness (R), CVA tenderness (L), paraspinal tenderness, vertebral tenderness, sciatic notch tenderness (R), sciatic notch tenderness (L), straight leg raise (R) or straight leg raise (L) Neurological Exam Neurological exam: Present alert, oriented X3, CN II-XII intact, normal gait and reflexes normal; Absent motor sensory deficit Psychiatric Psychiatric exam: Present normal affect and normal mood Skin Skin exam: Present warm, dry, intact and normal color Course Quality Measures none Orders Category Date Time Status XR lumbar spine 2-3V Stat Exams 06/04/25 03:25 Completed HYDROcodone*/APAP 5/325 [[place] 5/325] Med 06/04/25 03:25 Discontinued 1 tab PO X1 ONE Ketorolac Inj [Toradol Inj] Med 06/04/25 03:25 Discontinued 30 mg IM X1 ONE Vital Signs Vital signs: Vital Signs Temperature 98 F 06/04/25 03:15 Pulse Rate 61 06/04/25 03:15 Respiratory Rate 19 06/04/25 03:15 Blood Pressure 154/86 H 06/04/25 03:15 Pulse Oximetry (%) 97 06/04/25 03:15 Oxygen Delivery Method Room Air 06/04/25 03:15 Patient is afebrile not tachycardic not tachypneic BP stable not hypoxic oxygen saturation is 97% in room air Back Pain / Injury MDM Narrative MDM Narrative:: This is a case of 59-year-old female who came in in the emergency room due to lower back pain on and off for 4 days due to persistence of the symptoms this patient decided to sought consult here in the emergency room denies any numbness weakness tingling sensation or incontinence to urine or stool patient states that she has on and off lower back pain for 1 year but no injury no trauma noted patient states that she only took [id number] pain medication which relieved the pain due to persistence of the symptoms this patient decided to sought consult here in the emergency room physical examination patient is awake alert oriented not in distress nontoxic looking well-hydrated well-nourished neurological exam is normal awake alert oriented x 4 no focal deficit GCS 15/15 steady gait back exam noted mild to moderate tenderness on the L1 L5 no crepitation no deformity no redness no cellulitis no paraspinal tenderness no paravertebral tenderness no CVA tenderness steady gait straight leg exam is normal mild muscle spasm x-ray showed a no fracture no dislocation with DDD lumbar patient was given Toradol [place] patient condition markedly improved and resolved patient will follow-up with PCP in 2 days for evaluation and to be referred to neurosurgeon for possible MRI to rule out herniated disc and pain management doctor for pain control for any recurrent persistent worsening symptoms or any emergent concern she will return in the emergency room immediately or call 911 at the time of exam no signs and symptoms of cauda equina patient was discharged with [place] and baclofen for pain and muscle spasm Patient was discharged with comfortable condition walking with stable gait. Patient verbalized no further complains explained diagnosis and answered patient question. Patient is comfortable with the proposed management plan including the need to follow up with his/her primary care physician and any specialist if applicable Discussed patient for any urgent condition or worsening sx, He/She needed to go to emergency room immediately or call 911. Patient acknowledge the responsibility to follow up as instructed and to monitor her/his symptoms. For any persistence of the symptoms for more than 3-5 days return precaution advised. Discussed the result of the test and was given printed discharge instruction Patient data External records reviewed:: [facility] previous records Clinical information provided by:: patient Social determinants that could affect healthcare access:: none Patient has the following chronic illnesses:: None How is presenting disease/condition affected by chronic disease/condition?: no chronic disease Evaluation data The following diagnostics were reviewed and interpreted by me:: radiology exam(s) Lab and/or radiology exams considered but not ordered:: Reviewed Interpretation Summary: Reviewed Medications / Prescriptions Medications or Prescriptions considered but not ordered:: Given Medication administrations:: Medication Administration History Discontinued Medications Hydrocodone Bitart/Acetaminophen (Hydrocodone/Apap 5/325 Tablet) 1 tab PO X1 ONE Stop: 06/04/25 03:26 Last Admin: 06/04/25 04:18 Dose: 1 tab Documented By: TRAE Ketorolac Tromethamine (Ketorolac Inj 60 Mg/2 Ml Vial) 30 mg IM X1 ONE Stop: 06/04/25 03:26 Last Admin: 06/04/25 04:18 Dose: 30 mg Documented By: TRAE Given Consultations Consultation(s) initiated? (list below): No Diagnosis Differential diagnosis back pain/injury: lumbar radiculopathy, sciatica, strain of lumbar region and other (Herniated disc lumbar bulging disc) Most likely diagnosis given after review of the tests above:: Back muscle spasm Admission Indicated Admission indicated?: not indicated Explain why admission is indicated or not indicated:: Not indicated Admission Request Was there a request for admission?: No Admission Attestation Admission request attestation: Not indicated Disposition Plan Disposition Plan: Discharge Discharge Attestation Discharge Attestation: The patient and all family members were given an opportunity to ask questions and understood the discharge instructions. Discharge instructions specifically effects, indications for sooner follow up or return to the emergency department, and the expected course of current diagnosis. Patient condition: Stable Discharge Plan Plan Patient Disposition: HOME (Self Care) Patient condition on transfer: Stable Prescriptions/Referrals Prescriptions/Med Rec: New hydrocodone-acetaminophen 5-325 mg tablet 1 tab PO Q6H MDD max4 tabs per day PRN (Reason: pain) Qty: 10 0RF baclofen 10 mg tablet 10 mg PO BID PRN (Reason: muscle spasm) Qty: 10 0RF No Action chlorpheniramine maleate [Chlor-Trimeton] 4 mg Tablet 4 mg PO Q6H PRN (Reason: Allergy Symptoms) levothyroxine 75 mcg Tablet 75 mcg PO QAMAC loratadine 10 mg Tablet 20 mg PO QDAY Janumet 50-1,000 mg Tablet 1 tab PO BID Jardiance 25 mg Tablet 25 mg PO QDAY ibuprofen 800 mg tablet 600 mg PO TID Qty: 30 0RF sulfamethoxazole-trimethoprim [Bactrim DS] 800-160 mg tablet 1 tab PO BID Qty: 14 0RF benzonatate 200 mg capsule 200 mg PO TID PRN (Reason: cough) Qty: 14 0RF pravastatin 10 mg tablet 10 mg PO QDAY aspirin 81 mg tablet,chewable 81 mg PO QDAY acetaminophen 500 mg capsule 1,000 mg PO TID Qty: 30 0RF Problem List Clinical Impression: Lower back pain, DDD (degenerative disc disease), lumbar, Muscle spasm Patient/Caregiver Discharge Instructions Education Materials: ED Back Pain (Acute or Chronic), ED Degenerative Disk Disease, ED Muscle Spasm Additional Instructions: Follow-up with your primary care physician in 2 days for reevaluation and to be referred to neurosurgeon for further evaluation of DDD lumbar for possible MRI to ruled out herniated disc and to be referred to pain management doctor for pain control worsening symptoms or any emergent concerns such as numbness weakness tingling sensation incontinence to urine or stool call 911 or go to the nearest emergency room take your medication as directed do not take [place] and baclofen at the same time ice pack and warm compress as needed for pain Print Language: Kiswahili Stand Alone Forms: Mariana Award Info., Patient Portal Info Letter PA/DREW Supervising Physician ALISON/DREW Supervising Physician: Dr ramirez
== END 2025-06-04 05:54 | disposition home or self-care (01) ==
LOC: SERX 04:53
PROVIDERS: Emergency Provider Family Medicine; PCP Physician Assistant
DX: M51.360 Other intervertebral disc degeneration, lumbar region with discogenic back pain only (principal); E11.9 Type 2 diabetes mellitus without complications; E05.90 Thyrotoxicosis, unspecified without thyrotoxic crisis or storm; E78.00 Pure hypercholesterolemia, unspecified; F17.210 Nicotine dependence, cigarettes, uncomplicated; Z79.84 Long term (current) use of oral hypoglycemic drugs; Z79.890 Hormone replacement therapy; Z79.899 Other long term (current) drug therapy; Z79.82 Long term (current) use of aspirin; Z79.1 Long term (current) use of non-steroidal anti-inflammatories (NSAID)
CPT/HCPCS: 72100; 96372; 99283; J1885; A9270